=== PATIENT | male | born 1995 | race Caucasian/White ===

== ENCOUNTER 2018-07-07 15:04 | Emergency (ER) | payer OTHER ==
[2018-07-07 15:36] VITALS: BP 117/66
--- NOTE | 2018-07-07 16:41 | UC ---
Hand/Wrist HPI - HPI Summary HPI Summary: 23 y/o male presents to the urgent care c/o Baseball hit L hand last night; pain currently in 4 metacarpal. Would like xray. No pain to 4th finger. - History Of Current Complaint Chief Complaint: UCUpperExtremity Stated Complaint: LT HAND INJURY Time Seen by Provider: 07/07/18 16:38 Hx Obtained From: Patient Onset/Duration: Gradual Onset, Lasting Days - 1 day, Still Present Severity Initially: Mild Severity Currently: Mild Pain Intensity: 4 Pain Scale Used: 0-10 Numeric Character Of Pain: Dull, Aching Aggravating Factor(s): Movement, Flexion - making a fist Alleviating Factor(s): Rest, Ice Associated Signs And Symptoms: Positive: Negative. Negative: Swelling, Redness , Numbness/Tingling Related History: Dominant Hand Right - Allergies/Home Medications Allergies/Adverse Reactions: Allergies Allergy/AdvReac Type Severity Reaction Status Date / Time No Known Allergies Allergy Verified 07/07/18 15:32 Home Medications: Home Medications NK [No Home Medications Reported] 07/07/18 [History Confirmed 07/07/18] PMH/Surg Hx/FS Hx/Imm Hx Previously Healthy: Yes - Pt denies PMHX - Surgical History Surgical History: None - Family History Known Family History: Positive: None - Pt denies Fmhx - Social History Occupation: Student Lives: With Family Alcohol Use: None Substance Use Type: None Smoking Status (MU): Never Smoked Tobacco - Immunization History Vaccination Up to Date: Yes Review of Systems All Other Systems Reviewed And Are Negative: Yes Constitutional: Positive: Negative Skin: Positive: Negative Eyes: Positive: Negative ENT: Positive: Negative Respiratory: Positive: Negative Cardiovascular: Positive: Negative Gastrointestinal: Positive: Negative Genitourinary: Positive: Negative Motor: Positive: Negative Neurovascular: Positive: Negative Musculoskeletal: Positive: Decreased ROM - left hand s/p injury, Other: - left hand pain s/p injury w/ a ball Neurological: Positive: Negative Psychological: Positive: Negative Is Patient Immunocompromised?: No Physical Exam - Summary Physical Exam Summary: Vital Signs Reviewed: Yes General: Well developed well nourished male sitting in the examining table w/o any apparent distress Eyes: Positive: Conjunctiva Clear - PERRLA, EOMI ENT: Positive: Normal ENT inspection, Hearing grossly normal, Pharynx normal, TMs normal Neck: Positive: Supple, Nontender, No Lymphadenopathy Respiratory: Positive: Chest non-tender, Lungs clear, Normal breath sounds, No respiratory distress Cardiovascular: Positive: RRR, No Murmur, Pulses Normal, Brisk Capillary Refill Abdomen Description: Positive: Nontender, No Organomegaly, Soft. Negative: CVA Tenderness (R), CVA Tenderness (L) Bowel Sounds: Positive: Present Musculoskeletal: Positive: Strength Intact, No Edema, Other: - Hand/Fingers: the L hand is without obvious asymmetry or deformity when compared to the R hand. mild swelling around dorsal side of #5 metacarpal and MCPJ, Pt keeps #5 phalanx in abducted position, but can adduct phalanx, no erythema, atrophy, or obvious deformity. No surface trauma, open wounds,bony deformity. Normal cascade of fingers. Normal flexion and extension of fingers, except for #5 phalanx due to pain. FDS and FDP intact against resistance. No focal fullness , throbbing pain, swelling of finger tip. Pulses and capillary refill WNL, positive reflexes and sensation intact Neurological Exam: Normal Psychological Exam: Normal Skin Exam: Normal Triage Information Reviewed: Yes Vital Signs: Initial Vital Signs Temp 98.7 F 07/07/18 15:32 Pulse 87 07/07/18 15:32 Resp 18 07/07/18 15:32 BP 117/66 07/07/18 15:32 Pulse Ox 100 07/07/18 15:32 Hand/Wrist Course/Dx - Course Course Of Treatment: Left # hand X-ray ordered: impression: There was no fracture, dislocation, soft tissue swelling or FB noted observed by radiologist. Probably a hand sprain. Pt decline cock up splint since he can get one at School. Pt advised RICE and take Ibuprofen PO for pain. F/u with Orthopedic from Sports Medicine if not improvement of symptoms in 1 week. Pt understood and agreed with D/C instructions. - Differential Dx/Diagnosis Differential Diagnosis/HQI/PQRI: Contusion, Dislocation, Fracture, Infection, Sprain, Strain, Tendonitis Provider Diagnosis: Left hand pain, Sprain of left hand Discharge - Sign-Out/Discharge Documenting (check all that apply): Patient Departure - D/c home All imaging exams completed and their final reports reviewed: Yes - Discharge Plan Condition: Stable Disposition: HOME Patient Education Materials: Hand Sprain (ED) Referrals: Feliz Sanchez DO [Primary Care Provider] - 1 Week [facility] [Provider Group] - 1 Week Additional Instructions: 1-Please take Ibuprofen PO 600mg q6-8hrs prn medications as directed to alleviate pain and swelling. 2-Please apply ice, keep your hand immobilized with the splint.Please avoid strenuous exercise or heavy lifting w/ your hand 3- Please f/u with Orthopedic from sports medicine or your PCP in 1 week is not improvement of symptoms for further evaluation and treatment. - Billing Disposition and Condition Condition: STABLE Disposition: Home
== END 2018-07-07 17:18 | disposition home or self-care (01) ==
LOC: UCEAST 15:04
DX: S63.92XA Sprain of unspecified part of left wrist and hand, initial encounter (principal); W21.03XA Struck by baseball, initial encounter; Y92.9 Unspecified place or not applicable
CPT/HCPCS: 99201; G0463